=== PATIENT | female | born 1970 | race Two or more races ===

== ENCOUNTER 2018-11-21 11:52 | Inpatient (IN) | payer OTHER ==
[2018-11-21 13:08] VITALS: BMI 19.5
--- NOTE | 2018-11-21 16:54 | HP ---
COWS - Scale Resting Pulse: 1= [place] 81-100 Sweatin=Flushed/Facial Moisture Restless Observation: 1= Difficult to Sit Still Pupil Size: 1= Pupils >than Normal Bone or Joint Aches: 2= Severe Diffuse Aches Runny Nose/ Eye Tearin= Runny Nose/Eyes GI Upset > 30mins: 1= Stomach Cramp Tremor Observation: 1= Tremor [place], Not Seen Yawning Observation: 0= None Anxiety or Irritability: 1=Feels Anxious/Irritable Goose Flesh Skin: 0=Smooth Skin COWS Score: 12 CIWA Score Nausea/Vomitin-No Nausea/No Vomiting Muscle Tremors: 1-None Visible, but [place] Anxiety: 3 Agitation: 2 Paroxysmal Sweats: No Perspiration Orientation: 1-Uncertain about Date Tacttile Disturbances: 0-None Auditory Disturbances: 0-None Visual Disturbances: 0-None Headache: 1-Very Mild CIWA-Ar Total Score: 8 - Admission Criteria OASAS Guidelines: Admission for Medically Managed Detox: Requires at least one of the followin. CIWA greater than 12 2. Seizures within the past 24 hours 3. Delirium tremens within the past 24 hours 4. Hallucinations within the past 24 hours 5. Acute intervention needed for co occurring medical disorder 6. Acute intervention needed for co occurring psychiatric disorder 7. Severe withdrawal that cannot be handled at a lower level of care (continued vomiting, continued diarrhea, abnormal vital signs) requiring intravenous medication and/or fluids 8. Admitting History and Physical - Past Medical History ...LMP: 01/09/09 - Smoking History Smoking history: Current every day smoker Have you smoked in the past 12 months: Yes Aproximately how many cigarettes per day: 20 - Alcohol/Substance Use Hx Alcohol Use: Yes Admission ROS [facility] Chief Complaint: Renetta Waldron is a 48 year old female presenting for heroin, cocaine, and alcohol abuse. Allergies/Adverse Reactions: Allergies Allergy/AdvReac Type Severity Reaction Status Date / Time No Known Allergies Allergy Verified 11/21/18 12:46 History of Present Illness: Renetta Waldron is a 48 year old female presenting for heroin, cocaine, and alcohol abuse. Heroin: 3 bundles daily. Denies IVDU. Inhalation use. Last use was in the morning. Has been heroin for the last five years. Denies overdose. States currently does not have a Narcan Kit but has had one in the past and knows how to use one. Longest period of sobriety: 3 years. Has never been on methadone program in the past. Has been on suboxone in the past. Cocaine: 200-300$. Smoking. Alcohol: 3-4 pints of hard alcohol, several beers in addition. Denies seizures, blackouts. Has had falls and head hits. Toritoa: uses daily. Has been to detox and rehab in the past. Medical History: HIV (CD4 unknown) Surgical History: denies Psychiatric History: denies Smokin-1.5 ppd Social: Lives in apartment, lives alone. Patient is fatigued and intermittently falling asleep during interview and is poor historian at this time. Unable to assess fully and have a reasonable baseline for the patient. Will be admitted for alcohol detox with Librium Will be admitted for heroin detox with methadone. Advised to follow up with her clinic for continued HIV care as she stated that she is only intermittently compliant with her medication. Exam Limitations: Other (patient, tired intermittently falling asleep) - Ebola screening Have you traveled outside of the country in the last 21 days: No Have you had contact with anyone from an Ebola affected area: No Do you have a fever: No - Review of Systems Constitutional: Chills, Loss of Appetite EENT: reports: No Symptoms Reported Respiratory: reports: Cough Cardiac: reports: No Symptoms Reported GI: reports: Nausea : reports: No Symptoms Reported Musculoskeletal: reports: Muscle Pain Integumentary: reports: No Symptoms Reported Neuro: reports: Headache, Dizziness Endocrine: reports: No Symptoms Reported Hematology: reports: No Symptoms Reported Psychiatric: reports: Agitated, Anxious Patient History - Patient Medical History Hx Anemia: No Hx Asthma: No Hx Chronic Obstructive Pulmonary Disease (COPD): No Hx Cancer: No Hx Cardiac Disorders: No Hx Congestive Heart Failure: No Hx Hypertension: No Hx Hypercholesterolemia: No Hx Pacemaker: No HX Cerebrovascular Accident: No Hx Seizures: No Hx Dementia: No Hx Diabetes: No Hx Gastrointestinal Disorders: No Hx Liver Disease: No Hx Genitourinary Disorders: No Hx Sexually Transmitted Disorders: Yes (Hx of syphillis.) Hx Renal Disease (ESRD): No Hx Thyroid Disease: No Hx Human Immunodeficiency Virus (HIV): Yes (SINCE 1992; DOES NOT REMEMBER WHEN SHE TOOK MEDS) Hx Hepatitis C: No Hx Depression: Yes Hx Suicide Attempt: No (DENIES) Hx Bipolar Disorder: No Hx Schizophrenia: No - Patient Surgical History Past Surgical History: No Hx Neurologic Surgery: No Hx Cataract Extraction: No Hx Cardiac Surgery: No Hx Lung Surgery: No Hx Breast Surgery: No Hx Breast Biopsy: No Hx Abdominal Surgery: No Hx Appendectomy: No Hx Cholecystectomy: No Hx Genitourinary Surgery: No Hx Section: No Hx Orthopedic Surgery: No Anesthesia Reaction: No - PPD History Previous Implant?: Yes Documented Results: Negative w/o proof Implanted On Prior [facility] Admission?: Yes Date: 02/23/15 PPD to be Administered?: Yes - Reproductive History Patient is a Female of Child Bearing Age (11 -55 yrs old): Yes Last Menstrual Period: 01/09/09 Patient : No - Smoking Cessation Smoking history: Current every day smoker Have you smoked in the past 12 months: Yes Aproximately how many cigarettes per day: 20 Cigars Per Day: 0 Hx Chewing Tobacco Use: No Initiated information on smoking cessation: Yes 'Breaking Loose' booklet given: 11/21/18 - Substance & Tx. History Hx Alcohol Use: Yes Hx Substance Use: Yes Substance Use Type: Alcohol, Cocaine, Heroin Hx Substance Use Treatment: Yes - Substances abused Crack Substance route: Smoking Frequency: Daily Amount used: $200 Age of first use: 11 Date of last use: 11/21/18 Alcohol Substance route: Oral Frequency: Daily Amount used: LIQUOR- 3SHOTS/ 6PKS BEER- 16OZ Age of first use: 17 Date of last use: 11/21/18 Heroin Substance route: Inhalation Frequency: Daily Amount used: 2BUNDLES Age of first use: 39 Date of last use: 11/21/18 Admission Physical Exam BHS - Vital Signs Vital Signs: Vital Signs - 24 hr 11/21/18 12:46 Temperature 97.5 F L Pulse Rate 95 H Respiratory 18 Rate Blood Pressure 116/72 - Physical General Appearance: Yes: Disheveled, Moderate Distress, Irritable, Other (tired , intermittently falling asleep) HEENTM: Yes: EOMI, Normocephalic, Normal Voice, CHRISTINA, Pharynx Normal Respiratory: Yes: Lungs Clear, Normal Breath Sounds, No Respiratory Distress, No Accessory Muscle Use Neck: Yes: No masses,lesions,Nodules, Trachea in good position Breast: Yes: Breast Exam Deferred Cardiology: Yes: Regular Rhythm, Regular Rate, S1, S2 Abdominal: Yes: Normal Bowel Sounds, Non Tender, Flat, Soft Genitourinary: Yes: Within Normal Limits Back: Yes: Normal Inspection Musculoskeletal: Yes: full range of Motion Extremities: Yes: Normal Capillary Refill, Normal Inspection, Normal Range of Motion, Non-Tender 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, Motor Strength 5/5 Integumentary: Yes: Normal Color, Dry, Warm - Diagnostic (1) Alcohol abuse Current Visit: Yes Status: Acute (2) HIV (human immunodeficiency virus infection) Current Visit: Yes Status: Acute (3) Nicotine dependence Current Visit: No Status: Acute Qualifiers: Nicotine product type: cigarettes Substance use status: uncomplicated Qualified Code(s): F17.210 - Nicotine dependence, cigarettes, uncomplicated (4) Cocaine dependence, uncomplicated Current Visit: No Status: Chronic (5) Depression (emotion) Current Visit: No Status: Chronic Qualifiers: Depression Type: unspecified Qualified Code(s): F32.9 - Major depressive disorder, single episode, unspecified (6) Opioid dependence with withdrawal Current Visit: No Status: Chronic (7) MDD (major depressive disorder) Current Visit: No Status: Suspected Cleared for Admission S - Detox or Rehab [facility] Level of Care: Medically Managed Detox Regimen/Protocol: Methadone/Librium Breathalyzer - Breathalyzer Breathalyzer: 0 Urine Drug Screen - Test Device Lot number: [id number] Expiration date: 07/07/20 - Control Is test valid?: Yes - Results Drug screen NEGATIVE: No Urine drug screen results: THC-Marijuana, DANIEL-Cocaine, FEN-Fentanyl, MOP-Opiates Inpatient Rehab Admission - Rehab Decision to Admit Inpatient rehab admission?: No
--- NOTE | 2018-11-21 17:12 | PN ---
"Teaching Attending Note Name of Resident: Steve Angulo ATTENDING PHYSICIAN STATEMENT I saw and evaluated the patient. I reviewed the resident's note and discussed the case with the resident. I agree with the resident's findings and plan as documented. SUBJECTIVE: 48 year old female here for heroin detox , reports 3 bundles daily via inhalation , denies IVDU , latest use today , currently appears intoxicated, drowsy , lethargic, falls asleep frequently during interview , awakened by verbal stimuli , denies OD , longest reported sobriety 3 years , denies MMTP . Pt is poor historian 2/2 intoxication / drowsiness. Cocaine: 200-300$ via inhalation Alcohol: states 12-pk to 18-pk beer , more on weekends , cannot quantify amount , also claims 3 pints of liquor, unclear how often Denies seizures, blackouts, recent falls. Marijuana: daily. Medical History: HIV (CD4 unknown) non- compliant w/ HAART Surgical History: denies Psychiatric History: denies Smokin-1.5 ppd Social: lives alone. OBJECTIVE: wnwd his report was requested by: Blanca Larry | Reference #: [id number] Others' Prescriptions Patient Name: Renetta Waldron Date: 1970 Address: [address] [place] [address] Sex: Female Rx Written Rx Dispensed Drug Quantity Days Supply Prescriber Name 07/13/2018 10/13/2018 zolpidem tartrate 10 mg tablet 30 30 Petty Frazier NP 07/13/2018 08/14/2018 zolpidem tartrate 10 mg tablet 30 30 Petty Frazier NP 04/13/2018 05/17/2018 zolpidem tartrate 10 mg tablet 30 30 Iniguez- Petty Lopez NP 04/13/2018 04/17/2018 zolpidem tartrate 10 mg tablet 30 30 Petty Frazier NP 02/13/2018 03/16/2018 zolpidem tartrate 10 mg tablet 30 30 Al Rodrigues MD 02/13/2018 02/13/2018 zolpidem tartrate 10 mg tablet 30 30 Al Rodrigues MD 08/18/2017 12/27/2017 zolpidem tartrate 10 mg tablet 30 30 IniguezPetty Potter Y [employer] PA[employer] TECHNICIAN Vital Signs - 24 hr 11/21/18 12:46 Temperature 97.5 F L Pulse Rate 95 H Respiratory 18 Rate Blood Pressure 116/72 ASSESSMENT AND PLAN: Opioid dependence - Methadone detox Alcohol dependence - Librium detox . Cocaine dependence / Nicotine dependence"
[2018-11-21] MEDS ORDERED: hydrOXYzine PAMOATE 25 MG CAPSULE (FP) PO PRN (18:26)
[2018-11-21] MEDS ORDERED: chlordiazePOXIDE HCL 10 MG CAPSULE PO PRN (18:26)
[2018-11-21] MEDS ORDERED: MAGNESIUM HYDROX 2400MG/30ML ORAL SUSPENSION 30 ML CUP PO PRN (18:26)
[2018-11-21] MEDS ORDERED: BISMUTH SUBSALICYLATE 524 MG/30 ML UD PO PRN (18:26)
[2018-11-21] MEDS ORDERED: ACETAMINOPHEN 325 MG TABLET (FP) PO PRN ×2 (18:26)
[2018-11-21] MEDS ORDERED: MAGNESIUM CITRATE 300 ML BOTTLE PO PRN (18:26)
[2018-11-21] MEDS ORDERED: cloNIDine HCL 0.1 MG TABLET PO PRN (18:26)
[2018-11-21] MEDS ORDERED: METHADONE HCL 10 MG TABLET (FOR DETOX USE ONLY) PO ONE (18:26)
[2018-11-21] MEDS ORDERED: MAG HYDROX/AL HYDROX/SIMETH 30 ML UNIT-DOSE CUP PO PRN (18:26)
[2018-11-21] MEDS ORDERED: MENTHOL/PHENOL 1 EACH UD MM PRN (18:26)
[2018-11-21] MEDS ORDERED: IBUPROFEN 400 MG TABLET (FP) PO PRN (18:26)
[2018-11-21] MEDS: chlordiazePOXIDE HCL 25 MG CAPSULE PO SCH (22:12)
[2018-11-21] MEDS: THIAMINE HCL 100 MG TABLET (FP) PO SCH (22:12)
[2018-11-21] MEDS: MELATONIN 5 MG TABLETS PO PRN (22:12)
[2018-11-22] MEDS: chlordiazePOXIDE HCL 25 MG CAPSULE PO SCH ×3 (05:52→22:18)
[2018-11-22] MEDS ORDERED: METHADONE HCL 5 MG TABLET (FOR DETOX USE ONLY) PO ONE (10:00)
[2018-11-22] MEDS: PRENATAL VITAMINS W/ FOLIC ACID TABLET (FP) PO SCH (10:49)
[2018-11-22 12:07] LABS: HEMATOCRIT 35.2 % (32.4-45.2); HEMOGLOBIN 11.8 GM/dL (10.7-15.3); MCH 30.4 pg (25.7-33.7); MCHC 33.4 g/dl (32.0-36.0); MEAN CELL VOLUME 91.1 fl (80-96); MEAN PLT VOLUME 8.4 fl (7.5-11.1); PLATELET COUNT 332 K/MM3 (134-434); RBC 3.86 M/mm3 (3.60-5.2); RDW 12.5 % (11.6-15.6); WHITE BLOOD COUNT 10.8 K/mm3 (4.0-10.0)
[2018-11-22 12:20] LABS: ALBUMIN 2.6 g/dl (3.4-5.0); BILIRUBIN,TOTAL 0.3 mg/dL (0.2-1); BLOOD UREA NITROGEN 16.4 mg/dL (7-18); CALCIUM 8.8 mg/dL (8.5-10.1); CREATININE 1.5 mg/dL (0.55-1.3); POTASSIUM 4.3 mmol/L (3.5-5.1); TOT PROT 7.4 g/dl (6.4-8.2)
--- NOTE | 2018-11-22 17:24 | PN ---
[facility] CIWA - CIWA Score Nausea/Vomitin-No Nausea/No Vomiting Muscle Tremors: None Anxiety: 3 Agitation: 0-Normal Activity Paroxysmal Sweats: 2 Orientation: 2-Disoriented Date<2 days Tacttile Disturbances: 2-Mild Itch/Numbness/Burn Auditory Disturbances: 3-Moderate Harsh/Frighten Visual Disturbances: 0-None Headache: 0-None Present CIWA-Ar Total Score: 12 S COWS - Scale Resting Pulse: 1= [place] 81-100 Sweatin= Chills/Flushing Restless Observation: 0= Sits Still Pupil Size: 0= Normal to Room Light Bone or Joint Aches: 1= Mild Discomfort Runny Nose/ Eye Tearin= None GI Upset > 30mins: 0= None Tremor Observation of Outstretched Hands: 0= None Yawning Observation: 1= 1-2x During Session Anxiety or Irritability: 2=Irritable/Anxious Goose Flesh Skin: 3=Piloerection COWS Score: 9 S Progress Note (SOAP) Subjective: Sweating, Anxious, Fatigue. Objective: PATIENT A & O X 2 (UNCERTAIN ABOUT CURRENT DAY / DATE). IN NO ACUTE DISTRESS. PATIENT AFEBRILE. 11/22/18 17:25 Vital Signs Temperature 96.4 F L 11/22/18 13:57 Pulse Rate 96 H 11/22/18 13:57 Respiratory Rate 18 11/22/18 13:57 Blood Pressure 115/74 11/22/18 13:57 O2 Sat by Pulse Oximetry (%) Laboratory Tests 11/21/18 11/22/18 11/22/18 15:20 08:20 08:20 WBC 10.8 H RBC 3.86 Hgb 11.8 Hct 35.2 MCV 91.1 MCH 30.4 MCHC 33.4 RDW 12.5 D Plt Count 332 D MPV 8.4 Sodium 140 Potassium 4.3 Chloride 104 Carbon Dioxide 30 Anion Gap 6 L BUN 16.4 Creatinine 1.5 H Est GFR (CKD-EPI)AfAm 46.60 Est GFR (CKD-EPI)NonAf 40.20 Random Glucose 94 Calcium 8.8 Total Bilirubin 0.3 AST 12 L ALT 16 Alkaline Phosphatase 97 Total Protein 7.4 Albumin 2.6 L POC Urine HCG, Qual Negative LABS NOTED. RESULT OF DETOX ADMISSION RPR PENDING. 11/22/18 17:26 11/22/18 17:27 Assessment: 11/22/18 17:25 WITHDRAWAL SYMPTOMS. AZOTEMIA. 11/22/18 17:26 Plan: CONTINUE DETOX. INCREASE DAILY PO WATER INTAKE.
[2018-11-22] MEDS ORDERED: NICOTINE POLACRILEX 2 MG GUM BUC PRN (19:23)
[2018-11-22] MEDS: THIAMINE HCL 100 MG TABLET (FP) PO SCH (22:18)
[2018-11-22] MEDS: MELATONIN 5 MG TABLETS PO PRN (22:19)
[2018-11-23] MEDS: chlordiazePOXIDE 5 MG CAPSULE PO SCH ×2 (05:28→14:28)
[2018-11-23] MEDS ORDERED: METHADONE HCL 10 MG TABLET (FOR DETOX USE ONLY) PO ONE (10:00)
[2018-11-23] MEDS ORDERED: NICOTINE 14 MG/24 HOURS TOPICAL PATCH TD SCH (10:00)
[2018-11-23] MEDS: PRENATAL VITAMINS W/ FOLIC ACID TABLET (FP) PO SCH (10:37)
--- NOTE | 2018-11-23 12:57 | PN ---
[facility] CIWA - CIWA Score Nausea/Vomitin-Mild Nausea/No Vomiting Muscle Tremors: 2 Anxiety: 2 Agitation: 2 Paroxysmal Sweats: 1-Minimal Palms Moist Orientation: 0-Oriented Tacttile Disturbances: 1-Very Mild Itch/Numbness Auditory Disturbances: 1-Very Mild Visual Disturbances: 0-None Headache: 0-None Present CIWA-Ar Total Score: 10 [facility] COWS - Scale Resting Pulse: 2= [place] 101-120 Sweatin= Chills/Flushing Restless Observation: 0= Sits Still Pupil Size: 1= Pupils >than Normal Bone or Joint Aches: 2= Severe Diffuse Aches Runny Nose/ Eye Tearin= Nasal Congestion GI Upset > 30mins: 2= Nausea/Diarrhea Tremor Observation of Outstretched Hands: 1= Tremor [place], Not Seen Yawning Observation: 1= 1-2x During Session Anxiety or Irritability: 1=Feels Anxious/Irritable Goose Flesh Skin: 0=Smooth Skin COWS Score: 12 [facility] Progress Note (SOAP) Subjective: doing well with librium detox regimen opiate withdrawal increased additinal 10 mg of methadone for 11/24/18 patient is anxious sweating body aches Objective: 11/23/18 12:56 Vital Signs Temperature 97.3 F L 11/23/18 09:09 Pulse Rate 105 H 11/23/18 09:09 Respiratory Rate 16 11/23/18 09:09 Blood Pressure 123/85 11/23/18 09:09 O2 Sat by Pulse Oximetry (%) Laboratory Last Values WBC 10.8 K/mm3 (4.0-10.0) H 11/22/18 08:20 RBC 3.86 M/mm3 (3.60-5.2) 11/22/18 08:20 Hgb 11.8 GM/dL (10.7-15.3) 11/22/18 08:20 Hct 35.2 % (32.4-45.2) 11/22/18 08:20 MCV 91.1 fl (80-96) 11/22/18 08:20 MCH 30.4 pg (25.7-33.7) 11/22/18 08:20 MCHC 33.4 g/dl (32.0-36.0) 11/22/18 08:20 RDW 12.5 % (11.6-15.6) D 11/22/18 08:20 Plt Count 332 K/MM3 (134-434) D 11/22/18 08:20 MPV 8.4 fl (7.5-11.1) 11/22/18 08:20 Sodium 140 mmol/L (136-145) 11/22/18 08:20 Potassium 4.3 mmol/L (3.5-5.1) 11/22/18 08:20 Chloride 104 mmol/L (98-107) 11/22/18 08:20 Carbon Dioxide 30 mmol/L (21-32) 11/22/18 08:20 Anion Gap 6 MMOL/L (8-16) L 11/22/18 08:20 BUN 16.4 mg/dL (7-18) 11/22/18 08:20 Creatinine 1.5 mg/dL (0.55-1.3) H 11/22/18 08:20 Est GFR (CKD-EPI)AfAm 46.60 11/22/18 08:20 Est GFR (CKD-EPI)NonAf 40.20 11/22/18 08:20 Random Glucose 94 mg/dL (74-106) 11/22/18 08:20 Calcium 8.8 mg/dL (8.5-10.1) 11/22/18 08:20 Total Bilirubin 0.3 mg/dL (0.2-1) 11/22/18 08:20 AST 12 U/L (15-37) L 11/22/18 08:20 ALT 16 U/L (13-61) 11/22/18 08:20 Alkaline Phosphatase 97 U/L (45-117) 11/22/18 08:20 Total Protein 7.4 g/dl (6.4-8.2) 11/22/18 08:20 Albumin 2.6 g/dl (3.4-5.0) L 11/22/18 08:20 POC Urine HCG, Qual Negative 11/21/18 15:20 RPR Titer Nonreactive (NONREACTIVE) 11/22/18 08:20 lab noted Assessment: 11/23/18 12:56 alcohol and opiate withdrawal sx Plan: continue librium and methadone detox regimen
[2018-11-23 13:31] VITALS: BP 116/82; PULSE 101; TEMP 98.4
--- NOTE | 2018-11-23 15:23 | DS ---
[facility] Detox Discharge Summary Admission Date: 11/21/18 Discharge Date: 11/23/18 - History Present History: Alcohol Dependence, Opioid Dependence Additional Comments: doing well with librium and methadone detox regimen no complication through out the detox stay patient is alert oriented x 3 steady gait speech coherently after lunch and showered patient prefers to leave the detox unit that she wants to follow up with her ID provider respiratory clear lung bilaterally on auscultation extremities full range of motion abdomen soft no rebound tenderness - Physical Exam Results Vital Signs: Vital Signs Temperature 98.4 F 11/23/18 13:14 Pulse Rate 101 H 11/23/18 13:14 Respiratory Rate 16 11/23/18 13:14 Blood Pressure 116/82 11/23/18 13:14 O2 Sat by Pulse Oximetry (%) Pertinent Admission Physical Exam Findings: alcohol and opiate withdrawal sx Laboratory Last Values WBC 10.8 K/mm3 (4.0-10.0) H 11/22/18 08:20 RBC 3.86 M/mm3 (3.60-5.2) 11/22/18 08:20 Hgb 11.8 GM/dL (10.7-15.3) 11/22/18 08:20 Hct 35.2 % (32.4-45.2) 11/22/18 08:20 MCV 91.1 fl (80-96) 11/22/18 08:20 MCH 30.4 pg (25.7-33.7) 11/22/18 08:20 MCHC 33.4 g/dl (32.0-36.0) 11/22/18 08:20 RDW 12.5 % (11.6-15.6) D 11/22/18 08:20 Plt Count 332 K/MM3 (134-434) D 11/22/18 08:20 MPV 8.4 fl (7.5-11.1) 11/22/18 08:20 Sodium 140 mmol/L (136-145) 11/22/18 08:20 Potassium 4.3 mmol/L (3.5-5.1) 11/22/18 08:20 Chloride 104 mmol/L (98-107) 11/22/18 08:20 Carbon Dioxide 30 mmol/L (21-32) 11/22/18 08:20 Anion Gap 6 MMOL/L (8-16) L 11/22/18 08:20 BUN 16.4 mg/dL (7-18) 11/22/18 08:20 Creatinine 1.5 mg/dL (0.55-1.3) H 11/22/18 08:20 Est GFR (CKD-EPI)AfAm 46.60 11/22/18 08:20 Est GFR (CKD-EPI)NonAf 40.20 11/22/18 08:20 Random Glucose 94 mg/dL (74-106) 11/22/18 08:20 Calcium 8.8 mg/dL (8.5-10.1) 11/22/18 08:20 Total Bilirubin 0.3 mg/dL (0.2-1) 11/22/18 08:20 AST 12 U/L (15-37) L 11/22/18 08:20 ALT 16 U/L (13-61) 11/22/18 08:20 Alkaline Phosphatase 97 U/L (45-117) 11/22/18 08:20 Total Protein 7.4 g/dl (6.4-8.2) 11/22/18 08:20 Albumin 2.6 g/dl (3.4-5.0) L 11/22/18 08:20 POC Urine HCG, Qual Negative 11/21/18 15:20 RPR Titer Nonreactive (NONREACTIVE) 11/22/18 08:20 lab noted - Treatment Hospital Course: Detox Protocol Followed, Detoxed Safely, Responded well, Discharged Condition Good, Rehab Referral Accepted Patient has Accepted a Rehab Referral [facility]: [facility] - Medication Discharge Medications: Ambulatory Orders Abacavir Sulfate [Abacavir] 300 mg PO BID 01/16/16 Darunavir Ethanolate [Prezista -] 800 mg PO DAILY 01/16/16 Dolutegravir Sodium [Tivicay] 50 mg PO DAILY 01/16/16 Lisinopril [Prinivil] 10 mg PO DAILY 01/16/16 Ritonavir [Norvir -] 100 mg PO DAILY 01/16/16 Loratadine 10 mg PO DAILY 11/21/18 Zolpidem Tartrate [Ambien] 10 mg PO HS 11/21/18 Naloxone HCl [Narcan] 4 mg NS ASDIR PRN #1 spray 11/23/18 - Diagnosis (1) Alcohol dependence with withdrawal, uncomplicated Status: Acute (2) HIV (human immunodeficiency virus infection) Status: Chronic Qualifiers: HIV symptom status: asymptomatic Qualified Code(s): Z21 - Asymptomatic human immunodeficiency virus [HIV] infection status (3) Nicotine dependence Status: Acute Qualifiers: Nicotine product type: cigarettes Substance use status: in withdrawal Qualified Code(s): F17.213 - Nicotine dependence, cigarettes, with withdrawal (4) Weight loss Status: Acute (5) Opioid dependence with withdrawal Status: Acute - AMA Did Patient Leave Against Medical Advice: No CIWA Score - CIWA Score Nausea/Vomitin-Mild Nausea/No Vomiting Muscle Tremors: 1-None Visible, but [place] Anxiety: 1-Mildly Anxious Agitation: 1-Slight > Activity Paroxysmal Sweats: 1-Minimal Palms Moist Orientation: 0-Oriented Tacttile Disturbances: 1-Very Mild Itch/Numbness Auditory Disturbances: 1-Very Mild Visual Disturbances: 0-None Headache: 0-None Present CIWA-Ar Total Score: 7 COWS (PN) - Opiate Withdrawal Resting Pulse: 2= [place] 101-120 Sweatin= Chills/Flushing Restless Observation: 0= Sits Still Pupil Size: 0= Normal to Room Light Bone or Joint Aches: 1= Mild Discomfort Runny Nose/ Eye Tearin= None GI Upset > 30mins: 0= None Tremor Observation of Outstretched Hands: 1= Tremor [place], Not Seen Yawning Observation: 0= None Anxiety or Irritability: 1=Feels Anxious/Irritable Goose Flesh Skin: 0=Smooth Skin COWS Score: 6
[2018-11-24] MEDS ORDERED: chlordiazePOXIDE HCL 10 MG CAPSULE PO PRN
[2018-11-24] MEDS ORDERED: chlordiazePOXIDE HCL 10 MG CAPSULE PO SCH (05:00)
[2018-11-24] MEDS ORDERED: METHADONE HCL 5 MG TABLET (FOR DETOX USE ONLY) PO ONE (06:00)
[2018-11-24] MEDS ORDERED: METHADONE HCL 10 MG TABLET (FOR DETOX USE ONLY) PO ONE (10:00)
[2018-11-25] MEDS ORDERED: chlordiazePOXIDE HCL 10 MG CAPSULE PO ONE (05:00)
[2018-11-25] MEDS ORDERED: METHADONE HCL 5 MG TABLET (FOR DETOX USE ONLY) PO ONE (06:00)
== END 2018-11-23 15:14 | disposition home or self-care (01) | DRG 773 ==
LOC: YASAS 11:52 → Y3N 18:41
PROVIDERS: ADMIT Allergy & Immunology; ATTEND Allergy & Immunology
PROC: HZ2ZZZZ Detoxification Services for Substance Abuse Treatment (ICD-10-PCS; principal; 2018-11-21)
DX: F10.230 Alcohol dependence with withdrawal, uncomplicated (principal); F11.23 Opioid dependence with withdrawal; F14.20 Cocaine dependence, uncomplicated; F17.210 Nicotine dependence, cigarettes, uncomplicated; F39 Unspecified mood [affective] disorder; F32.9 Major depressive disorder, single episode, unspecified; Z21 Asymptomatic human immunodeficiency virus [HIV] infection status; R79.89 Other specified abnormal findings of blood chemistry; R63.4 Abnormal weight loss; Z68.1 Body mass index [BMI] 19.9 or less, adult; Z86.19 Personal history of other infectious and parasitic diseases
CPT/HCPCS: 36415; 80053; 81025; 85027; 86593

== ENCOUNTER 2021-03-27 12:52 | Inpatient (IN) | payer OTHER ==
[2021-03-27] MEDS ORDERED: MAG HYDROX/AL HYDROX/SIMETH 30 ML UNIT-DOSE CUP PO PRN (13:44)
[2021-03-27] MEDS ORDERED: METHOCARBAMOL 500 MG TABLET PO PRN (13:44)
[2021-03-27] MEDS ORDERED: MAGNESIUM HYDROX 2400MG/30ML ORAL SUSPENSION 30 ML CUP PO PRN (13:44)
[2021-03-27] MEDS ORDERED: BISMUTH SUBSALICYLATE 524 MG/30 ML PO PRN (13:44)
[2021-03-27] MEDS ORDERED: MENTHOL/PHENOL 1 EACH UD MM PRN (13:44)
[2021-03-27] MEDS ORDERED: ONDANSETRON *ODT* 4 MG TABLET SL PRN (13:44)
[2021-03-27] MEDS ORDERED: MAGNESIUM CITRATE 300 ML BOTTLE PO PRN (13:44)
[2021-03-27] MEDS ORDERED: ACETAMINOPHEN 325 MG TABLET (FP) PO PRN ×2 (13:44)
[2021-03-27] MEDS ORDERED: cloNIDine HCL 0.1 MG TABLET PO PRN (13:44)
[2021-03-27] MEDS ORDERED: IBUPROFEN 400 MG TABLET (FP) PO PRN (13:44)
[2021-03-27] MEDS ORDERED: LOPERAMIDE HCL 2 MG CAPSULE PO PRN (13:44)
[2021-03-27] MEDS ORDERED: NICOTINE 10 MG CARTRIDGE (INHALER) IH PRN (13:44)
[2021-03-27] MEDS ORDERED: PRENATAL VITAMINS W/ FOLIC ACID TABLET (FP) PO SCH (13:45)
[2021-03-27] MEDS ORDERED: NICOTINE 14 MG/24 HOURS TOPICAL PATCH TD SCH (14:00)
[2021-03-27] MEDS ORDERED: hydrOXYzine PAMOATE 25 MG CAPSULE (FP) PO SCH (14:00)
[2021-03-27 14:07] VITALS: BMI 18.8
[2021-03-27] MEDS ORDERED: hydrOXYzine PAMOATE 25 MG CAPSULE (FP) PO PRN (14:51)
[2021-03-27] MEDS ORDERED: methaDONE HCL 10 MG TABLET (FOR DETOX USE ONLY) PO ONE (15:00)
[2021-03-27 16:10] LABS: HEMATOCRIT 29.5 % (32.4-45.2); HEMOGLOBIN 9.8 GM/dL (10.7-15.3); MCHC 33.3 g/dl (32.0-36.0); MEAN PLT VOLUME 7.9 fl (7.5-11.1); PLATELET COUNT 227 10^3/uL (134-434); RBC 3.28 M/mm3 (3.60-5.2); RDW 14.9 % (11.6-15.6); WHITE BLOOD COUNT 6.8 K/mm3 (4.0-10.0)
[2021-03-27 16:14] LABS: CALCIUM 8.4 mg/dL (8.5-10.1)
[2021-03-27 16:15] LABS: ALBUMIN 2.9 g/dl (3.4-5.0); BLOOD UREA NITROGEN 53.8 mg/dL (7-18)
[2021-03-27 16:18] LABS: CREATININE 3.1 mg/dL (0.55-1.3)
[2021-03-27 16:19] LABS: BILIRUBIN,TOTAL 0.4 mg/dL (0.2-1); TOT PROT 9.6 g/dl (6.4-8.2)
[2021-03-27] MEDS ORDERED: QUEtiapine FUMARATE 50 MG TABLET PO ONE (18:03)
[2021-03-27] MEDS ORDERED: THIAMINE HCL 100 MG TABLET (FP) PO SCH (22:00)
[2021-03-27] MEDS ORDERED: MELATONIN 5 MG TABLETS PO SCH (22:00)
[2021-03-27 23:13] VITALS: BP 98/58; PULSE 108; TEMP 97.8
[2021-03-29] MEDS ORDERED: methaDONE HCL 10 MG TABLET (FOR DETOX USE ONLY) PO ONE (10:00)
[2021-03-31] MEDS ORDERED: methaDONE HCL 10 MG TABLET (FOR DETOX USE ONLY) PO ONE (10:00)
== END 2021-03-28 11:00 | disposition left against medical advice (07) | DRG 770 ==
LOC: YASAS 12:52 → Y6N 14:45
PROVIDERS: ADMIT Allergy & Immunology; ATTEND Allergy & Immunology
PROC: HZ2ZZZZ Detoxification Services for Substance Abuse Treatment (ICD-10-PCS; principal; 2021-03-27)
DX: F11.23 Opioid dependence with withdrawal (principal); F14.20 Cocaine dependence, uncomplicated; F16.20 Hallucinogen dependence, uncomplicated; F12.20 Cannabis dependence, uncomplicated; F17.210 Nicotine dependence, cigarettes, uncomplicated; F19.282 Other psychoactive substance dependence with psychoactive substance-induced sleep disorder; F19.24 Other psychoactive substance dependence with psychoactive substance-induced mood disorder; B20 Human immunodeficiency virus [HIV] disease; Z86.19 Personal history of other infectious and parasitic diseases; Z59.01 Sheltered homelessness
CPT/HCPCS: 36415; 80053; 85027; 86593; 86780; C9803; U0003; U0005